=== PATIENT | male | born 1950 | race Caucasian/White ===

== ENCOUNTER 2019-01-07 11:33 | Inpatient (IN) | payer OTHER ==
[~2019-01-07] VITALS: Ht 132.1 cm; Wt 83.2 kg
[2019-01-07] VITALS (7 sets, daily range): BP systolic 101–139; BP diastolic 58–76
[~2019-01-07 11:33] MED LIST: ASPIR 8181 M1 PO; CELEXA20 MG PO; ELIQUIS5 MG PO; FLOMAX0.4 MG PO; FOLIC ACID1 MG PO; LIPITOR10 MG PO; LISINOPRIL5 MG PO; MICONAZOLE 745 GM TOP; MULTIVITAMINS1 EAC7 PO; NITROGLYCERIN0.4 MG SUBLING; PEPCID20 MG PO; PROCEL1 EACH PO; REMERON15 M2 PO; TRAZODONE HCL50 MG PO; TRILEPTAL300 MG PO; VITAMINC500 PO; ZINC SULFATE 2220 MG PO
[2019-01-07 12:58] LABS: HEMATOCRIT 30.9 % (42.0-52.0)
--- NOTE | 2019-01-07 16:43 | EKG ---
[address] [address] ELECTROCARDIOGRAM REPORT Name: NICOLE TOMLIN Room #: 150-4 [facility].#: [id number] Admission: 01/07/19 Attend Phys: Dk Palencia MD, Discharge: Date of : 46 Report #: [id number] THIS REPORT FOR: //name// [facility] Test Date: 2019-01-07 Test Time: 12:05:06 Pat Name: NICOLE TOMLIN Department: Room: 150 4 Gender: M Roll Up Helper: natty : 1950 Requested By: Dk Palencia Order Number: [id number] MD: Casa Bermudez Measurements Intervals [place]ck[place] Rate: 76 P: 0 NM: 155 QRS: 57 QRSD: 130 T: 34 QT: 390 QTc: 439 Interpretive Statements Sinus rhythm Nonspecific intraventricular conduction delay No previous ECG available for comparison Electronically Signed On 01-07-2019 16:42:51 CDT by Casa Bermudez [email or web address] <ELECTRONICALLY SIGNED> By: Casa Bermudez MD 01/07/19 1642 D: 09/1204 04 Casa Bermudez MD /NAINA
[2019-01-08] VITALS (7 sets, daily range): BP systolic 88–124; BP diastolic 44–60
--- NOTE | 2019-01-08 06:14 | NUR ---
PATIENT ARRIVED ON UNIT VIA [facility] ROOM. PATIENT IS ALERT AND ORIENTED XPERSON ONLY. THOUGHT HE WAS AT THE FACILITY WHERE HE CAME FROM. DID NOT KNOW THE DATE OR THE SEASON. DID NOT EVEN KNOW WHY HE WAS HERE. DRESSING ON SACRAL WOUND IS D/I. COLOSTOMY WITH SMALL AMOUT OF BLOOD AROUND THE EDGE. GARCIA PATENT YELLOW URIME WITH LOTS OF SEDEIMENT. SLEPT THE FIRST PART OF THE NIGHT. LAST FOUR HOURS WAS AWAKE MOST OF THE TIME. DENIES PAIN.
--- NOTE | 2019-01-08 08:57 | NUR ---
OSTOMY CARE; bloody drainage present outer wafer, pouch changed using 2 piece system, vanita cut to fit, stoma red viable budded, stoma bridge in place no stool yet, small amt serous bloody drainage in pouch. alert, receptive to education, info and supplies placed at bs, social staff worker informed of care, will cont to follow
--- NOTE | 2019-01-08 15:45 | NUR ---
FAXED CLINICAL UPDATE TO [facility] SPOKE WITH TIFFANY IN ADM SHE RECEIVED UPDATE AND ANTICIPATE DC FRIDAY. DCP TO FOLLOW.
--- NOTE | 2019-01-08 16:42 | NUR ---
PT ADMITTED FROM [facility] FOR SACRAL DEBRIDEMENT AND DIVERTING COLOSTOMY. IT IS ANTICIPATED THAT PT WILL RETURN TO [facility] ONCE MEDICALLY STABLE. CM TO FOLLOW INDICATED WITH DC PLANNING.
[2019-01-09 04:53] VITALS: BP 94/67
[2019-01-09 05:24] LABS: HEMATOCRIT 28.3 % (42.0-52.0); MCH 27.1 pg (26.0-34.0); MCV 84.9 fL (80.0-100.0); RBC 3.33 mil/uL (4.50-6.00); RDW 17.1 % (10.5-14.5)
--- NOTE | 2019-01-09 05:48 | NUR ---
PATIENT ALERT AND ORIENTED XPERSON ONLY. GARCIA PATENT YELLOW URINE WITH SEDIMENT. COLOSTOMY PATENT. ACCUCHECK WAS 123. IV IN LFA. REMAINS IN ISO FOR CDIF. ON O2 AT 2L/NC. SLEPT OFF AND ON DURING NIGHT. C/O PAIN. NOTHING ORDERED, CALLED DR CHÁVEZ AND OBTAINED AN ORDER FOR PAIN MED. WAS GIVEN.
[2019-01-09 06:06] LABS: ALBUMIN 2.3 g/dL (3.4-5.0); CALCIUM 8.9 mg/dL (8.5-10.1); CREATININE 1.1 mg/dL (0.7-1.3); TOTAL BILIRUBIN 0.2 mg/dL (<0.1-1.0); TOTAL PROTEIN 6.2 g/dL (6.4-8.2)
[2019-01-09 07:51] VITALS: BP 97/54
--- NOTE | 2019-01-09 07:56 | H ---
[facility] [address] [place] [address] HISTORY AND PHYSICAL Name: NICOLE TOMLIN Room #: 432-P [facility] M..#: [id number] Admission: 01/07/19 Attend Phys: Dk Palencia MD, Discharge: Date of : 46 Report #: [id number] THIS REPORT FOR: //name// CC: Rodney Palencia DATE OF SERVICE: 01/07/2019 CHIEF COMPLAINT: Wound. HISTORY OF PRESENT ILLNESS: The patient is a 68-year-old gentleman who was admitted yesterday electively by Dr. 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 He was planned for a diverting colostomy and debridement. He had previously been treated at [facility] without improvement. PAST MEDICAL HISTORY: He takes chronic anticoagulation for I believe AFib, hypertension. I believe there is a remote history of C. diff. PAST SURGICAL HISTORY: Unknown. FAMILY HISTORY: Unknown. SOCIAL HISTORY: Unknown. ALLERGIES: None. MEDICATIONS: Flomax, Eliquis, Lipitor, lisinopril, aspirin, Trileptal, Celexa, Remeron, trazodone, zinc, Pepcid, folic acid, vitamin C, multivitamin. REVIEW OF SYSTEMS: He denies any headache, chest pain, shortness of breath or abdominal pain. OBJECTIVE: VITAL SIGNS: Temperature 36.7, pulse 54, respirations 16, blood pressure 107/53. GENERAL: He is in no distress. LUNGS: Clear. HEART: Regular. ABDOMEN: Soft, normoactive bowel sounds, surgical dressing in place and colostomy. EXTREMITIES: No edema. The sacral wound is dressed. ASSESSMENT: 1. Stage 4 sacral pressure wound. 2. Elective colostomy placement. [facility] [address] [place] [address] HISTORY AND PHYSICAL Name: NICOLE TOMLIN Room #: 432-P [facility]..#: [id number] Admission: 01/07/19 Attend Phys: Dk Palencia MD, Discharge: Date of : 46 Report #: [id number] 3. Hypertension. 4. Chronic anticoagulation. PLAN: We will continue his medications from the LTAC facility with followup lab data. I have spoken to Dr. Palencia about his case. Social work is discussing with the LTAC on the timing of his return to their care. <ELECTRONICALLY SIGNED> By: Bryson Blanco MD 01/09/19 0756 [id number] 1702 Bryson Blanco MD /nt
--- NOTE | 2019-01-09 11:45 | NUR ---
PT A&OX3. IV INTACT IN L FA. NON AMBULATORY. COLOSTOMY INTACT WITH MODERATE AMT OF LOOSE BROWN STOOL. WOUND VAC TO SACRUM IS INTACT. GARCIA TO DD WITH SEDIMENT. PT C/O PAIN TO LLE. REPOSITIONED PT. TOLERATING PO WELL. IV INFUSNG NS W/O COMPS. BED ALARM ON.
[2019-01-09 17:03] VITALS: BP 106/55
[2019-01-09 20:02] VITALS: BP 122/64
[2019-01-10 05:10] VITALS: BP 104/62
[2019-01-10 08:11] VITALS: BP 94/57
[2019-01-10 16:15] VITALS: BP 126/59
[2019-01-10 19:11] VITALS: BP 104/47
--- NOTE | 2019-01-10 19:14 | NUR ---
PT A&OX4, IV INTACT IN L FA INFUSING FLUIDS W/O COMPS. COLOSTOMY INTACT, GARCIA CATH WITH SEDIMENT. WOUND VAC WAS NOT INTACT UPON ASSESSMENT WITH . WOUND VAC REMOVED, REPLACED WITH W/D DRSG ORDERED. BED ALARM ON, CALL LIGHT W/I REACH.
--- NOTE | 2019-01-11 03:40 | NUR ---
PATIENT ALERT AND ORIENTED X4. COMPLAINED TO THIS NURSE AT SHIFT CHANGE THAT THE TOP OF HIS FEET (DORSAL) NEEDED TO BE CHECKED FOR WOUNDS. THIS NURSE NOTED NO REDNESS OR WOUNDS, HOWEVER, FEET WERE RUBBED WITH PROTECTIVE LOTION THEY ARE DRY AND SOCKS WERE REPLACED. COLOSTOMY WITH GAS AND LITTLE OUTPUT. 2LNC TOLERATED W/O SOA. DRESSING TO SACRAL AREA DRY AND INTACT. BS PER ORDER. IVF INFUSING W/O COMPLICATION. TEMP FROM 100.4 TO 98.6. GARCIA TO D/D WITH YELLOW URINE. RESTING QUIETLY. WILL MONITOR.
[2019-01-11 04:12] VITALS: BP 107/47
[2019-01-11 07:40] VITALS: BP 114/66
--- NOTE | 2019-01-11 08:43 | O ---
[facility] [address] [place] [address] OPERATIVE REPORT Name: NICOLE TOMLIN Room #: 421-P [facility] M.RLevi#: [id number] Admission: 01/09/19 Attend Phys: Dk Palencia MD, Discharge: Date of : 46 Report #: [id number] THIS REPORT FOR: //name// CC: Rodney Palencia DATE OF SERVICE: 01/07/2019 PREOPERATIVE DIAGNOSES: 1. 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 2. Generalized immobility. 3. Achondroplasia. 4. 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 POSTOPERATIVE DIAGNOSES: 1. 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 2. Generalized immobility. 3. Achondroplasia. 4. 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 PROCEDURES PERFORMED: 1. Diverting loop transverse colostomy. 2. Excisional debridement of skin, subcutaneous tissue, muscle and bone of a grossly infected stage IV sacral decubitus wound, ultimately measuring 6 x 7 cm in dimension (42 square cm). Preoperative and postoperative wound measurements did not change substantially as the overall dimensions of the wound did not change. 3. Application of extracellular matrix tissue to the entire 42 square cm sacral decubitus wound. SURGEON: Dk Palencia M.D. VIGOUREUX PRINTER: CATHERINE Grace ANESTHESIA: General endotracheal anesthesia. ESTIMATED BLOOD LOSS: Minimal (less than 10 mL). COMPLICATIONS: None appreciated. SPECIMENS: None. INDICATIONS: The patient is a 68-year-old male with achondroplasia who has generalized debility and developed a sacral wound that has undergone multiple rounds of ongoing local wound care and debridement. Unfortunately, the patient has chronic fecal contamination to the wound with soilage daily and has [facility] [address] [place] [address] OPERATIVE REPORT Name: NICOLE TOMLIN Room #: 421-P [facility] Medhat Rosales#: [id number] Admission: 01/09/19 Attend Phys: Dk Palencia MD, Discharge: Date of : 46 Report #: [id number] grossly purulent drainage from the wound. As such, indication was for debridement and diverting colostomy today. DESCRIPTION OF PROCEDURE: After explaining the risks, benefits and alternatives of the procedure with the patient in detail and obtaining consent, the patient was brought to the operating room and placed supine on his hospital bed. After conducting a thorough timeout procedure verifying correct patient and procedure, the patient was given general endotracheal anesthesia. Once adequate anesthesia was obtained, his SCDs were hooked up to pneumatic compression device. He was given a preoperative dose of antibiotics in line with the SCIP protocol. The patient was now positioned in the prone position with all pressure points appropriately padded and his sacral wound was prepped and draped in standard surgical sterile fashion. Electrocautery was used to circumferentially debride all nonviable skin, subcutaneous tissue, muscle, and bone from the periphery of the wound, carried down to the bed of the wound. All purulent material was evacuated in full and copiously irrigated. The [employer] ultrasonic debridement tool was now used to remove all remaining biofilm and nonviable tissue and rongeurs were used to remove nonviable bone. Hemostasis was assured with manual pressure and electrocautery. I did elect to place a 6 x 6 cm piece of PriMatrix Ag mesh extracellular tissue graft in the bed of the wound to hopefully promote wound healing. This was stapled to the periphery of the wound and anchored to the bed of the wound using 3-0 Vicryl in standard interrupted inverted fashion. This was bolstered with Adaptic and sterile saline soaked Alonso wrap, dressed with 4 x 4s, ABDs and Medipore tape. The patient was now repositioned in the supine position where his abdomen was prepped and draped in standard surgical sterile fashion. A #10 bladed scalpel was used to create a 2.5 cm vertical incision in the right upper quadrant, midway between the umbilicus and the xiphoid just to the right of midline. Electrocautery was used to carry this down through skin and subcutaneous tissues to ensure hemostasis until I arrived upon the anterior fascia. This was scored vertically revealing the right rectus muscle posteriorly. The rectus muscle was split and the posterior fascia was grasped between hemostats and opened with Metzenbaum scissors. A finger was then placed in the abdomen and the fascia was opened with electrocautery in a controlled setting to prevent injury from thermal spread. The transverse colon was seen to reside immediately posterior to the incision and this was grasped with a Erich and pulled up through the abdominal wound. A window was made in the mesentery with electrocautery and a colostomy retention bar was placed through this. This was anchored to the skin using 2-0 nylon both inferiorly and superiorly. The antimesenteric aspect of the colon was then opened with electrocautery and controlled with a hemostat to prevent injury to the back wall. The colostomy was then matured using four imbricating sutures of 3-0 Vicryl 2 superiorly and 2 inferiorly, one on each side of the retention bar to the fascia. These were full thickness purchases of the colon and anchored to the dermis. Each resultant right and left lateral mucocutaneous juncture was now matured using running 3-0 Vicryl sutures in standard fashion. Digital finger intubation of both afferent and efferent limbs showed them to be patent [facility] [address] [place] [address] OPERATIVE REPORT Name: NICOLE TOMLIN Room #: 421-P [facility] M.R.#: [id number] Admission: 01/09/19 Attend Phys: Dk Palencia MD, Discharge: Date of : 46 Report #: [id number] to a subfascial level. Sterile colostomy appliance was then applied completing the procedure. At the end of the procedure, all instrument, needle and sponge counts were correct. The patient tolerated the procedure without incident, was awakened in the operating room, transitioned to the recovery room in stable condition with no apparent complications. <ELECTRONICALLY SIGNED> By: Dk Palencia MD, FACS 01/11/19 0843 0935 1009 Dk Palencia MD, FACS /nt
--- NOTE | 2019-01-11 09:38 | NUR ---
OSTOMY CARE; pouch edges loose, new pouch vanita 2 piece system applied w/ adapt ring under wafer, stoma support bridge in place, mild bleeding noted, stoma beefy red, viable budded, peristomal skin intact, receptive to education, encouraged to participate in ostomy care, staffing branch manager informed of care, supplies and info at bs, will cont to follow
--- NOTE | 2019-01-11 10:52 | NUR ---
PT RESTING IN BED, ALERT XS 4 GAVE PRN PAIN MED EARLIER. TOOK AM MEDS AND ATE BREAKFAST. HAS GARCIA AND COLOSTOMY. SACRAL DRESSING INTACT. PT FROM [facility] IF NOT DCD BACK THEN WOUND CARE TO PUT ON WOUND VAC. PT PLEASANT AND COOPERATIVE WITH CARE.
--- NOTE | 2019-01-11 14:41 | NUR ---
PT DISCHARGING TODAY TO [facility] FAXED DC ORDERS/SUMMARY TO FACILITY SPOKE WITH TIFFANY IN ADM SHE RECEIVED DC ORDERS AND DCP SET UP TRANSPORTATION BY AMBULANCE ([facility]) FOR 1630 TODAY WITH 2L 02. NOTIFIED PT'S SPOUSE (JOLLY) OF DC AND TIME OF TRANSPORT. UNIT NOTIFIED AND CHART COPY PER US. RN TO CALL REPORT TO [phone].
--- NOTE | 2019-01-11 16:32 | NUR ---
PT TO DISCHARGE TO [facility] TODAY GAVE REPORT TO DENISE. IV ACSESS DCD. GARCIA CATH EMPTIED 950 CC, COLOSTOMY BAG EMPTIED. WOUND CARE PICTURE DISCHARGE TAKEN. ALL BELONGINGS AND WOUND CARE SUPPLIES PACKED TO SEND WITH HIM.
--- NOTE | 2019-01-11 18:01 | NUR ---
[facility] HERE TO TRANSPORT PATIENT TO [facility] ALL BELONGINGS PACKED AND SENT WITH PATIENT.
== END 2019-01-11 18:05 | DRG 981 ==
LOC: OR 11:33 → TBA 11:33 → OR 13:46 → 4E 18:57 → OR 01-08 09:00 → 4E 01-09 12:39 → OR 01-09 12:39 → 4E 01-09 12:40 → OR 01-09 12:40 → 4E 01-11 18:05
PROVIDERS: Internal Medicine Geriatric Medicine; ADMIT Surgery
PROC: 0QB10ZZ Excision of Sacrum, Open Approach (ICD-10-PCS; principal; 2019-01-07)
PROC: 0D1L0Z4 Bypass Transverse Colon to Cutaneous, Open Approach (ICD-10-PCS; principal; 2019-01-07)
PROC: 0QU Lower Bones, Supplement (ICD-10-PCS; principal; 2019-01-07)
DX: L89.154 Pressure ulcer of sacral region, stage 4 (principal); E43 Unspecified severe protein-calorie malnutrition; I10 Essential (primary) hypertension; I48.91 Unspecified atrial fibrillation; Z79.01 Long term (current) use of anticoagulants; Z79.899 Other long term (current) drug therapy; Z79.82 Long term (current) use of aspirin; Q77.4 Achondroplasia
CPT/HCPCS: 10783; 50010; 50101; 50386; 50403; 56524; 56525; 57119; 57120; 57138; 62110; 62900; 70005